=== PATIENT | female | born 1955 | race Asian ===

== ENCOUNTER → 2024-01-06 | Day surgery (SDC) | payer MEDICARE ==
[~2024-01-06] MED LIST: ACETAMINOPHEN 500MG TABLET ONE; CAFFEINE CITRATE 20MG/ML 3ML VIAL IV ONE; REGADENOSON 0.4 MG/5 ML IV ONE
== END | disposition home or self-care (01) ==
LOC: CCL 08:53
PROVIDERS: ATTEND Internal Medicine
DX: I07.1 Rheumatic tricuspid insufficiency (principal); I20.89 Other forms of angina pectoris
CPT/HCPCS: 93306; 93017; 78452; J2785; A9500; J0706; Z7610 ×3

== ENCOUNTER → 2025-02-14 | Outpatient (CLI) | payer MEDICARE ==
[~2025-02-14] VITALS: Ht 162.6 cm; Wt 72.6 kg
[~2025-02-14] MED LIST changes: -ACETAMINOPHEN 500MG TABLET ONE; -CAFFEINE CITRATE 20MG/ML 3ML VIAL IV ONE; +IOHEXOL-350 100 ML BOTTLE ONE; +METOPROLOL TARTRATE 5MG/5ML VIAL IV PRN; -REGADENOSON 0.4 MG/5 ML IV ONE
[2025-02-14] MEDS: NITROGLYCERIN SPRAY/4.9GM CAN TL NR (11:05)
== END | disposition home or self-care (01) ==
LOC: CT 09:27
PROVIDERS: ATTEND Internal Medicine
DX: Z13.6 Encounter for screening for cardiovascular disorders (principal); I20.0 Unstable angina; R91.1 Solitary pulmonary nodule; M47.814 Spondylosis without myelopathy or radiculopathy, thoracic region; R13.10 Dysphagia, unspecified
CPT/HCPCS: 70496; 70498; 75571; Q9967